=== PATIENT | female | born 1975 | race Hispanic/Latino ===

== ENCOUNTER 2024-09-23 11:00 | Inpatient (IN) | payer BC ==
[~2024-09-23] VITALS: Ht 149.9 cm; Wt 32.7 kg
[2024-09-23] VITALS (18 sets, daily range): BP systolic 107–146; BP diastolic 63–77; PULSE 50–90; RESP 15–18; TEMP 97.8–98.2; O2SAT 97
--- NOTE | 2024-09-23 11:08 | ERN ---
General Chief Complaint: Abdominal Pain Stated Complaint: ABDOMINAL PAIN Time Seen by MD: 11:02 Source: patient History of Present Illness Initial Comments PATIENT IS A 49-YEAR-OLD FEMALE COMING IN COMPLAINING OF LOWER ABDOMINAL PAIN. PATIENT STATES THAT THE LONG THE PAIN HAS BEEN GOING ON FOR THREE DAYS. PATIENT WAS EVALUATED ANOTHER HOSPITAL WAS TOLD SHE HAD APPENDICITIS SHE STATES HE LEFT AND WAS LATER EVALUATED BY DR. CRAIG WHO ORDERED A CT AND STATES THAT SHE DOES HAVE AN APPENDICITIS. PATIENT WAS SENT IN FOR FURTHER EVALUATION BY DR. CRAIG. Allergies: Coded Allergies: No Known Allergies (Unverified Allergy, Unknown, 09/23/24) Past Medical History Past Medical History: Cancer, Hypertension Medical History Other: FIBROMYALGIA Past Surgical History: Other ROS Dictation CONSTITUTIONAL: NO CHILLS, NO FEVER, NO WEAKNESS, NO DIAPHORESIS, NO MALAISE. HEAD/FACE: NO SIGNS OF TRAUMA. EENT: NO EYE PAIN, NO BLURRED VISION, NO TEARING, NO DOUBLE VISION, NO EAR PAIN, NO EAR DISCHARGE, NO NOSE PAIN, NO NASAL CONGESTION, NO THROAT PAIN, NO THROAT SWELLING, NO MOUTH PAIN. RESPIRATORY: NO COUGH, NO ORTHOPNEA, NO SOB, NO STRIDOR, NO WHEEZING. CARDIOVASCULAR: NO CHEST PAIN, NO EDEMA, NO PALPITATIONS, NO SYNCOPE. GASTROINTESTINAL/ABDOMINAL: ABDOMINAL PAIN, NO CONSTIPATION, NO DIARRHEA, NO NAUSEA, NO VOMITING. GENITOURINARY: NO ABNORMAL DISCHARGE, NO DYSURIA, NO FREQUENT URINATION, NO HEMATURIA. NO COMPLAINTS OF PAIN IN THE GENITALS. MUSCULOSKELETAL: NO BACK PAIN, NO GOUT, NO JOINT PAIN, NO JOINT SWELLING, NO MUSCLE PAIN, NO MUSCLE STIFFNESS, NO NECK PAIN. INTEGUMENTARY: NO CHANGE IN COLOR, NO CHANGE IN HAIR/NAILS, NO DRYNESS, NO LESION, NO LUMPS, NO RASH. NEUROLOGICAL/PSYCH: NO ANXIETY, NOT DEPRESSED, NO EMOTIONAL PROBLEM, NO HEADACHE, NO NUMBNESS, NO PRE-EXISTING DEFICIT, NO HISTORY OF SEIZURES, NO TREMORS, NO WEAKNESS. HEMATOLOGIC/LYMPHATIC: NOT ANEMIC, NO HISTORY OF BLOOD CLOTS, NO APPARENT BLEEDING, NO BRUISING, GLANDS NOT SWOLLEN. ALL SYSTEMS NEGATIVE, EXCEPT NOTED. Physical Exam Physical Exam Dictation VITAL SIGNS: REVIEWED. GENERAL APPEARANCE: ALERT, ORIENTED X3, NO ACUTE DISTRESS, OBESE. HEAD AND FACE: NON-TRAUMATIC. EYES: PERRL, PINK CONJUNCTIVAS, EYELID NO TRAUMA, ANTERIOR CHAMBER CLEAR. EARS: PINNAS INTACT AND NO SIGNS OF TRAUMA OR ERYTHEMA. EAR CANALS CLEAR AND NO DISCHARGE. TMS NO ERYTHEMA. NOSE: NO DISCHARGE, NO BLEEDING. OROPHARYNX: MOUTH NORMAL, TEETH NO CARIES, TONGUE PINK. PHARYNX CLEAR, NO ERYTHEMA. TONSILS NO EXUDATES, NO ABSCESSES NOTED. MUCOUS MEMBRANE MOIST. NECK: SUPPLE, NON-TENDER, NO THYROMEGALY, NO MASSES, NO JVD, NO BRUITS. BREAST: DEFERRED. CHEST: NO TENDERNESS, NO CREPITUS, NO PARADOXICAL MOVEMENT, NO RETRACTIONS. LUNGS: CLEAR, WELL-VENTILATED, SYMMETRIC, NO RALES, NO WHEEZING, NO RHONCHI, NO STRIDOR, GOOD BREATH SOUNDS BILATERALLY. HEART: REGULAR RATE, REGULAR RHYTHM, NO MURMUR, NO GALLOPS. VASCULAR: NO PERIPHERAL EDEMA. ABDOMEN: SOFT, POSITIVE BOWEL SOUNDS, NONDISTENDED, NO GUARDING, LOWER ABDOMINAL TENDER, NO REBOUND, NO MASSES NO HEPATOMEGALY, NO SPLENOMEGALY, NO JONES'S SIGN, NO HERNIAS. RECTAL: DEFERRED. GENITAL: DEFERRED. NEUROLOGICAL: NORMAL SPEECH, GROSS MOTOR FUNCTION INTACT, GROSS SENSORY FUNCTION INTACT. MUSCULOSKELETAL: NECK NONTENDER, FULL RANGE OF MOTION, BACK NONTENDER, FULL RANGE OF MOTION. EXTREMITIES: NONTENDER, FULL RANGE OF MOTION. SKIN: COLOR PINK, DRY, NO TURGOR, NO RASH, NO LACERATIONS, NO ABRASIONS, NO CONTUSIONS. LYMPHATICS: DEFERRED. Results Laboratory and Microbiology Labs Reviewed?: Yes MDM MDM: DIFFERENTIAL DIAGNOSIS: APPENDICITIS, ABDOMINAL PAIN, RATIONALE: TESTS CONSIDERED AND ORDERED SECONDARY TO SHARED DECISION MAKING INCLUDE: LABS, ECG AND RADIOLOGY PREVIOUS OUTSIDE RECORDS REVIEWED: OLD ER VISITS. RISK OF COMPLICATION AND/OR MORBIDITY OR MORTALITY OF PATIENT MANAGEMENT: NONE MEDICATIONS-PER MEDICATION RECONCILIATION NEED FOR HOSPITALIZATION: PATIENT DOES MEET CRITERIA FOR HOSPITALIZATION. NEED FOR EMERGENCY MAJOR/MINOR SURGERY: NO THERE ARE NO SOCIAL CONCERNS WITH THIS PATIENT. PRESCRIPTION DRUG MANAGEMENT PRESCRIPTIONS WILL INCLUDE SYMPTOMATIC CARE PATIENT'S PRIOR EXTERNAL MEDICAL RECORDS FROM OTHER ER VISITS WERE REVIEWED BY ME INDICATED. PRIOR TESTING AND RESULTS FROM PREVIOUS VISITS WERE REVIEWED. PRIOR TESTS WERE TAKEN INTO ACCOUNT WITH MEDICAL DECISION MAKING AND RESOURCE UTILIZATION, INDEPENDENT HISTORIAN/HISTORIANS WERE USED TO OBTAIN COMPLETE MEDICAL HISTORY. I INDEPENDENTLY INTERPRETED THE TEST THAT WERE PERFORMED, RESULTS WERE REVIEWED BY ME AND CONSIDERED FINDINGS ON RADIOLOGY IF ORDERED. MEDICAL MANAGEMENT AND EXAMINATION INTERPRETATION DISCUSSIONS WERE HAD BY ME WITH OTHER QUALIFIED HEALTHCARE PROFESSIONALS INDICATED FOR THE PATIENT'S CARE. PATIENT WILL BE ADMITTED UNDER THE CARE OF HOSPITALIST GROUP FOR ONGOING MANAGEMENT. SURGEON ON THE CASE DR. CRAIG ED Course Orders Procedure Category Date Status Time Cbc With Differential LAB 09/23/24 Logged 11:06 Comprehensive LAB 09/23/24 Logged Metabolic Panel 11:06 Amylase LAB 09/23/24 Logged 11:06 Troponin I High LAB 09/23/24 Logged Sensitivity 11:06 ,Urine Test LAB 09/23/24 Logged 11:06 Urinalysis Profile LAB 09/23/24 Logged 11:06 Creatine Kinase, Total LAB 09/23/24 Logged 11:06 Zosyn 3.375gm+Ns 50ml PHA 09/23/24 In Process (Zosyn 3.375gm+Ns 11:30 Initiate Hypokalemia CPOE 09/23/24 Transmitted Po Half 11:17 Potassium Chloride PHA 09/23/24 In Process 10meq/100ml ([place] 11:30 Potassium Chl 10% PHA 09/23/24 In Process Elixir 20meq (Kcl 10% 11:30 Notify Physician If CPOE 09/23/24 Transmitted There Is 11:17 Notify Md On The Next CPOE 09/23/24 Transmitted 11:17 Notify Md On The CPOE 09/23/24 Transmitted Next(Cont.) 11:17 Initiate Po CHANTAL 09/23/24 In Process Hypokalemia Protoc 11:17 Potassium Chloride PHA 09/23/24 In Process 20meq/100ml ([place] 11:30 Potassium Chl 10% PHA 09/23/24 In Process Elixir 20meq (Kcl 10% 11:30 Potassium Chloride PHA 09/23/24 In Process 20meq Er (K-Dur/Klor- 11:30 Notify Physician If CPOE 09/23/24 Transmitted There Is 11:17 Notify Md On The Next CPOE 09/23/24 Transmitted 11:17 Notify Md On The CPOE 09/23/24 Transmitted Next(Cont.) 11:17 Magnesium 2gm Premix PHA 09/23/24 In Process 50ml (Magnesium 2gm 11:30 B-Type Natriuretic LAB 09/24/24 Verified Peptide 04:00 Cbc With Differential LAB 09/24/24 Verified 04:00 Comprehensive LAB 09/24/24 Verified Metabolic Panel 04:00 Creatine Kinase, Total LAB 09/24/24 Verified 04:00 Hemoglobin A1c LAB 09/24/24 Verified 04:00 Hepatic Function Panel LAB 09/24/24 Verified 04:00 Influenza Type A & B, LAB 09/23/24 Logged Rapid 11:17 Lactic Acid LAB 09/24/24 Verified 04:00 Magnesium LAB 09/24/24 Verified 02:00 Prothrombin Time With LAB 09/24/24 Verified INR 04:00 Procalcitonin LAB 09/24/24 Verified 04:00 Potassium Chloride PHA 09/23/24 In Process 10meq Sr (K-Dur 10meq 11:30 Edm Admit Bridge Order ADM 09/23/24 Verified 11:21 Vital Signs(Adult CPOE 09/23/24 Verified Hospitalist) 11:21 Nurse To Enter Home CPOE 09/23/24 Verified Medication 11:21 Admit Orders ADM 09/23/24 Verified 11:21 Current Medications Medications (Trade) Dose Ordered Sig/Crescencio Route PRN Reason Start Time Stop Time Status Last Admin Dose Admin Magnesium Sulfate 50 ml @ 0 mls/hr PROTOCOL PRN IV other 09/23/24 11:30 10/23/24 11:29 Piperacillin Sod/ Tazobactam Sod (Zosyn 3.375gm+NS 50ml) 3.375 gm ONCE ONCE IV 09/23/24 11:30 09/23/24 11:31 Potassium Chloride 100 ml @ 100 mls/hr AD PRN IV POTASSIUM PROTOCOL 09/23/24 11:30 10/23/24 11:29 Potassium Chloride 100 ml @ 100 mls/hr AD PRN IV POTASSIUM PROTOCOL 09/23/24 11:30 10/23/24 11:29 Potassium Chloride (K-Dur 10meq Sr Tab) 10 meq AD PRN PO POTASSIUM PROTOCOL 09/23/24 11:30 10/23/24 11:29 Potassium Chloride (K-Dur/Klor-Con 20meq) 20 meq AD PRN PO POTASSIUM PROTOCOL 09/23/24 11:30 10/23/24 11:29 Potassium Chloride (KCl 10% Elixir 20meq/15ml) 10 meq AD PRN PO POTASSIUM PROTOCOL 09/23/24 11:30 10/23/24 11:29 Potassium Chloride (KCl 10% Elixir 20meq/15ml) 20 meq AD PRN PO POTASSIUM PROTOCOL 09/23/24 11:30 10/23/24 11:29 Vital Signs Date Time Temp Pulse Resp B/P (MAP) Pulse Ox O2 Delivery O2 Flow Rate FiO2 09/23/24 11:02 98.6 82 20 143/95 99 Room Air DX & DISP Disposition: Inpatient Decision to Admit Time: 11:27 Departure Impression: Primary Impression: Acute appendicitis Condition: Stable Referrals: SELF,REFERRAL (PCP) JOHN ROLON MD September 23, 2024 11:08
[2024-09-23] MEDS ORDERED: FAMOTIDINE 20MG VIAL IV PRN (11:30)
[2024-09-23] MEDS ORDERED: PoTASSium chloRIDE 10MEQ SR 10 MEQ/TAB TAB.SR.24H PO PRN (11:30)
[2024-09-23] MEDS ORDERED: MAG/ALUM/SIMETH 30 ML UDCUP PO PRN (11:30)
[2024-09-23] MEDS ORDERED: LACTULOSE 20 GM/30 ML UDCUP PO PRN (11:30)
[2024-09-23] MEDS ORDERED: MAGNESIUM 2GM PREMIX 50ML 50 ML IV PRN (11:30)
[2024-09-23] MEDS ORDERED: PoTASSium chloRIDE 10MEQ/100ML 100 ML IV PRN (11:30)
[2024-09-23] MEDS ORDERED: ZOLPidem TARTrate 5 MG TAB PO PRN (11:30)
[2024-09-23] MEDS ORDERED: guaiFENesin-DM 200/20MG 10ML PO PRN (11:30)
[2024-09-23] MEDS ORDERED: ondanSETRON 4MG INJ IV PRN (11:30)
[2024-09-23] MEDS ORDERED: PoTASSium chloRIDE 20MEQ ER 20 MEQ ERTAB PO PRN (11:30)
[2024-09-23] MEDS ORDERED: hydrALAZine 20MG/ML VIAL IV PRN (11:30)
[2024-09-23] MEDS ORDERED: DiphenhydrAMINE HCL 50 MG/ML VIAL IV PRN (11:30)
[2024-09-23] MEDS ORDERED: NITROGLYCERIN 0.4 MG SL TAB SL PRN (11:30)
[2024-09-23] MEDS ORDERED: PoTASSium chloRIDE 20MEQ/100ML 100 ML IV PRN (11:30)
[2024-09-23] MEDS ORDERED: acetaMINOPHEN 325 MG TAB PO PRN ×3 (11:30)
[2024-09-23] MEDS ORDERED: PoTASSium chl 10% ELIXIR 20MEQ 20 MEQ/15 ML UDCUP PO PRN ×2 (11:30)
[2024-09-23 11:35] LABS: BASOPHILS # (AUTO) 0.04 K/uL (0.00-0.20); BASOPHILS % (AUTO) 0.7 % (0.0-5.0); EOSINOPHILS # (AUTO) 0.08 K/uL (0.00-0.70); EOSINOPHILS % (AUTO) 1.3 % (0.0-8.0); HEMATOCRIT 38.1 % (36-48); IMMATURE GRANULOCYTE ABSOLUTE 0.02 K/uL (0-1); LYMPHOCYTES % (AUTO) 32.7 % (21.0-51.0); MEAN CORPUSCULAR HEMOGLOBIN 28.8 pg (27.0-33.0); MEAN CORPUSCULAR HGB CONC 32.5 g/dL (32.0-36.0); MEAN CORPUSCULAR VOLUME 88.6 fL (79-99); MONOCYTES # (AUTO) 0.4 K/uL (0.1-1.0); MONOCYTES % (AUTO) 6.8 % (3.0-13.0); NEUTROPHILS # (AUTO) 3.5 K/uL (1.8-7.7); NEUTROPHILS % (AUTO) 58.2 % (40.0-77.0); PLATELET COUNT (AUTO) 267 K/uL (130-400); RED CELL DISTRIBUTION WIDTH 12.6 % (11.0-15.5)
[2024-09-23 11:38] LABS: APPEARANCE,URINE CLEAR (CLEAR); BILIRUBIN,URINE NEGATIVE (NEGATIVE); COLOR,URINE LIGHT-YELLOW (YELLOW); GLUCOSE, URINE (UA) NEGATIVE (NEGATIVE); KETONES,URINE NEGATIVE (NEGATIVE); LEUKOCYTE ESTERASE ,URINE NEGATIVE Leu/uL (NEGATIVE); NITRATE,URINE NEGATIVE (NEGATIVE); OCCULT BLOOD,URINE NEGATIVE (NEGATIVE); PH,URINE 5.5 (5.0-8.0); PROTEIN,URINE NEGATIVE (NEGATIVE); UROBILINOGEN,URINE 0.2 mg/dL (0.2-1.0)
[2024-09-23 11:44] LABS: CREATININE 0.6 mg/dL (0.5-1.0); POTASSIUM 3.8 mmol/L (3.5-5.1)
[2024-09-23 11:44] LABS: MUCUS,URINE RARE LPF (None Seen); RBC,URINE 0-1 /HPF (0-1); SQUAMOUS EPITHELIAL CELL,UR MOD /HPF (0-2)
[2024-09-23] MEDS: 0.9%NACL 1000ML 1,000 ML IV SCH (11:45)
[2024-09-23] MEDS: ZOSYN 3.375GM +NS 50ML IV ONE (11:45)
[2024-09-23 11:48] LABS: ALBUMIN 3.7 g/dL (3.5-5.0); BILIRUBIN,TOTAL 0.3 mg/dL (0.2-1.0); TOTAL PROTEIN, SERUM 7.2 g/dL (6.0-8.3)
--- NOTE | 2024-09-23 11:54 | NUR ---
DCP: HOME Pt currently lives with her 2 children. Mary Jo Amezcua dgt [phone] was at bedside. Pt does not report any insecurities with food, assisted, and/or utilities. Pt denies any provider and home health services. Pt currently works at [employer] and is able to complete ADLs independently. PCP is Dr Watt and uses [facility] [address] for any RX needs. At DC pt will go home and family will assist with transportation. Addendum: 09/23/24 at 1200 by LOUISA BLANKENSHIP SS Amended: Links added.
--- NOTE | 2024-09-23 11:57 | CONS ---
CONSULT NOTE: Consulting physician: ER Consulting service: General surgery Reason for consultation: Acute appendicitis History of present illness: This is a 41-year-old female consulted to surgery known to our practice that has had abdominal pain for the last three days. Patient initially reporting trauma to the location while getting out of her vehicle but continued worsening discomfort since initial incident. Patient ended up having imaging performed which was consistent with a acute appendicitis. On physical exam patient with right lower quadrant discomfort. Imaging reviewed and concerns for acute a ppendicitis noted. Patient currently NPO. Labs and vitals unremarkable. Medical history: Cancer and hypertension fibromyalgia Surgical history: Review of systems: General: No Fever, No Chills, No Night Sweats, No Fatigue, No Malaise, No Appetite, No Other HEENT: No Head Aches, No Visual Changes, No Eye Pain, No Ear Pain, No Dysphasia, No Sinus Congestion, No Post Nasal Drip, No Sore Throat, No Other Pulmonary: No Dyspnea, No Cough, No Pleuritic Chest Pain, No Other Cardiovascular: No: Chest Pain, Palpitations, Orthopnea, Paroxysmal No Dyspnea, Edema, Lt Headedness, Other Gastrointestinal: No: Nausea, Vomiting, Diarrhea, Constipation, Melena, Hematochezia, Other Genitourinary: No Dysuria, No Frequency, No Incontinence, No Hematuria, No Retention, No Other Musculoskeletal: No: other, neck pain, shoulder pain, arm pain, back pain, hand pain, leg pain, foot pain Skin: No Urticaria, No Rash, No Other Neurological: No: Weakness, Numbness, Incoordination, Change in speech, Confusion, Seizures, Other Physical exam: General: Awake alert and oriented Heart: Regular rate and rhythm} Lungs: Clear to auscultation no distress Abdomen: [Soft, nontender, nondistended Assessment: This is a 49-year-old female with concerns of acute appendicitis Plan: This point in time patient will be scheduled for laparoscopic appendectomy to be performed by Dr. Robert Monroe Patient to remain NPO Surgical team to follow patient closely Consent for surgery to be obtained Dr. Monroe has been updated in patient's status and agrees with management at this time BENNY FONTANEZ Jr. September 23, 2024 11:57
--- NOTE | 2024-09-23 12:30 | HMCIMG ---
Exam Type: CHEST 1VW Clinical Information: congestion Comparison: None Findings: The lungs are clear of infiltrates. The heart is normal in size. The bony and soft tissue structures of the chest are unremarkable. Impression: Clear lungs.
[2024-09-23 12:42] LABS: INFLUENZA TYPE A Negative For Type A (NEGATIVE); INFLUENZA TYPE B Negative For Type B (NEGATIVE)
--- NOTE | 2024-09-23 12:42 | HMCIMG ---
Exam Type: CT ABDOMEN AND PELVIS WITHOUT CONTRAST Clinical Information: acute appendecitis Findings: The appendix is distended and there is periappendiceal stranding consistent with acute appendicitis. No evidence of perforation seen at this time. The lung bases are clear. The liver, gallbladder, spleen, pancreas, adrenal glands and kidneys are normal in appearance. No pathologic lymphadenopathy is evident. The intestinal gas pattern shows no evidence of dilatation to suggest obstruction or adynamic ileus. There is no evidence of constipation and no bowel wall lesions are noted to suggest neoplasm. The colon is unremarkable. Specifically, no large or small bowel dilatation or air/ fluid levels are noted to suggest obstruction or adynamic ileus. There is no evidence of pneumoperitoneum. The pelvic viscera are normal in CT appearance. The perirectal fat planes are clear. The visualized osseous elements are normal for the patient's age. IMPRESSION: Acute appendicitis without evidence of perforation. This study was performed using dose reduction techniques to include automated exposure control and/or adjustment of the mA and/or kV according to patient size.
[2024-09-23] MEDS ORDERED: LOSA25TA41 PO (14:39)
[2024-09-23] MEDS ORDERED: ESTR1TAB17 PO (14:40)
[2024-09-23] MEDS ORDERED: BUPIvacaine/PF 0.5% 30ML VIAL ONE (14:59)
[2024-09-23] MEDS: metoCLOPRAmide 10 MG/2 ML VIAL IVP ONE (15:14)
[2024-09-23] MEDS ORDERED: proPOFol 10 MG/ML 20ML VIAL IV ONE (15:29)
[2024-09-23] MEDS ORDERED: rocuRONium bROMide 10MG/1ML 5ML VL ONE (15:30)
[2024-09-23] MEDS ORDERED: ondanSETRON 4MG INJ ONE (15:30)
[2024-09-23] MEDS ORDERED: FENTanyl CITRate PF 50 MCG/1 ML 2ML VIAL ONE ×2 (15:30→17:11)
[2024-09-23] MEDS ORDERED: MIDAZOLAM HCL 1 MG/ML 2ML VIAL ONE (15:31)
[2024-09-23] MEDS ORDERED: hydroMORPHone 1 MG INJ ONE (15:54)
--- NOTE | 2024-09-23 17:07 | OP ---
Operative Note: DATE OF PROCEDURE: 09/23/24 SURGEON: ELOY GERARDO MD RETAIL ASSET PROTECTION SPECIALIST: [] ANESTHESIA: [] ANESTHESIOLOGIST/BLISTER RUST ERADICATOR: [] PREOPERATIVE DIAGNOSIS: [] Acute appendicitis POSTOPERATIVE DIAGNOSIS: [] The same SYNOPSIS: [] PROCEDURE: [] Laparoscopic appendectomy ESTIMATED BLOOD LOSS: [] None INDICATIONS: [] DESCRIPTION OF PROCEDURE: []With the patient prepped and draped in usual fashion supraumbilical incision was done. Using direct technique I was able to place a balloon trocar and abdomen insufflated. Two 5 mm trochars were inserted under direct vision in the lower abdomen. Immediately we identified an inflamed appendix and a window was created in the base and the appendix. Using a laparoscopic 45 mm JASMIN white stapler I transected the base of appendix. I used a reload to transect the mesoappendix. The appendix was placed in a bag. After adequate hemostasis and irrigation in the area I remove all the trochars under direct vision and the appendix through the supraumbilical incision. The fascia was closed with the 0 Vicryl [id number]. All incisions were closed with monocryl 4-0 and dermabon. Anesthesia did a tap block in the abdomen before the procedure started. Patient tolerated procedure without complication ELOY GERARDO MD September 23, 2024 17:06
[2024-09-23] MEDS ORDERED: NEOSTIGMINE METHYLSULFATE 1MG/ML IV ONE (17:10)
[2024-09-23] MEDS ORDERED: GLYCOPYRROLATE 0.2 MG/ML 5 ML VIAL ONE (17:10)
[2024-09-23] MEDS: acetaMINOPHEN 100 ML ONE (17:37)
[2024-09-23] MEDS: hydroMORPHone 1 MG INJ ONE (17:38)
--- NOTE | 2024-09-23 18:30 | NUR ---
PT received from recovery room status post Laparoscopic appendectomy. She is alert and answering questions appropriately. Dheeraj pain. There a re 4 abdominal incision closed with dermabond. SCDs are placed to lower extremities. PIV x 2 to the right arm. Currently undergoing vitals checks per facility policy.
[2024-09-23] MEDS: ZOSYN 3.375GM+NS 50ML 50 ML IV SCH (20:02)
[2024-09-23] MEDS: FAMOTIDINE 20MG VIAL IV SCH (20:02)
[2024-09-23] MEDS: HEParin 5,000 UNIT VIAL SQ SCH (21:00)
--- NOTE | 2024-09-23 21:00 | NUR ---
NOTE PT RECENT POSTOP HEPARIN NOT GIVEN AT THIS TIME.
[2024-09-24] VITALS: BP 132/63; PULSE 76
[2024-09-24] MEDS: morPHINE 2 MG SYG IVP PRN (00:52)
[2024-09-24 04:00] VITALS: BP 115/73; PULSE 70; RESP 16; TEMP 99
[2024-09-24 05:35] LABS: BASOPHILS # (AUTO) 0.03 K/uL (0.00-0.20); BASOPHILS % (AUTO) 0.4 % (0.0-5.0); HEMATOCRIT 33.2 % (36-48); IMMATURE GRANULOCYTE ABSOLUTE 0.03 K/uL (0-1); LYMPHOCYTES % (AUTO) 14.5 % (21.0-51.0); MEAN CORPUSCULAR HEMOGLOBIN 29.1 pg (27.0-33.0); MEAN CORPUSCULAR HGB CONC 32.8 g/dL (32.0-36.0); MEAN CORPUSCULAR VOLUME 88.5 fL (79-99); MONOCYTES # (AUTO) 0.4 K/uL (0.1-1.0); MONOCYTES % (AUTO) 6.3 % (3.0-13.0); NEUTROPHILS # (AUTO) 5.5 K/uL (1.8-7.7); NEUTROPHILS % (AUTO) 78.4 % (40.0-77.0); PLATELET COUNT (AUTO) 236 K/uL (130-400); RED BLOOD CELL COUNT(AUTO) 3.75 MIL/uL (4.00-5.50); RED CELL DISTRIBUTION WIDTH 12.6 % (11.0-15.5)
[2024-09-24 05:52] LABS: BILIRUBIN,DIRECT 0.1 mg/dL (0.0-0.3); BILIRUBIN,TOTAL 0.3 mg/dL (0.2-1.0); CREATININE 0.6 mg/dL (0.5-1.0); MAGNESIUM 2.2 mg/dL (1.80-2.40); POTASSIUM 3.9 mmol/L (3.5-5.1); TOTAL PROTEIN, SERUM 6.1 g/dL (6.0-8.3)
[2024-09-24 05:53] LABS: INR 0.97 (0.85-1.15); PROTHROMBIN TIME 10.3 SEC (9.6-11.6)
[2024-09-24 06:06] LABS: HEMOGLOBIN A1C 5.5 % (4.0-6.0)
[2024-09-24 07:49] VITALS: BP 124/67; PULSE 68; RESP 18; TEMP 98.3
[2024-09-24] MEDS: ketOROlac 15MG/ML VIAL (15MG/ML) IV PRN (10:14)
[2024-09-24 10:22] VITALS: O2SAT 98
--- NOTE | 2024-09-24 10:52 | PN ---
This is a 49-year-old female postop day one for appendectomy by Dr. Monroe Interval history: This 49-year-old female seen in her room resting Patient's pain controlled Patient tolerating clear liquids Patient has had flatus Physical exam General: Awake alert and oriented Heart: Regular rate and rhythm} Lungs: Clear to auscultation no distress Abdomen: [Soft, nontender, nondistended expected discomfort from surgical sites Assessment : This is a 41-year-old female postop day one for appendectomy by Dr. Monroe Plan: From surgical standpoint patient cleared for discharge once cleared by primary team No heavy lifting for six weeks Patient to be sent with treadmill and Colace for pain management to avoid constipation Patient to follow up in 1-[address] Larios office Vitals/Labs Vital Signs Date Time Temp Pulse Resp B/P (MAP) Pulse Ox O2 Delivery O2 Flow Rate FiO2 09/24/24 10:22 98 Room Air* 0 21 09/24/24 07:49 98.2 68 18 124/67 Laboratory Tests 09/23/24 11:21 09/24/24 05:17 Medications Current Medications Piperacillin Sod/ Tazobactam Sod 3.375 gm ONCE ONCE IV Last administered on 09/23/24at 11:45; Start 09/23/24 at 11:30; Stop 09/23/24 at 11:31; Status DC Potassium Chloride 100 ml @ 100 mls/hr AD PRN IV; Start 09/23/24 at 11:30; Stop 10/23/24 at 11:29 Potassium Chloride 10 meq AD PRN PO; Start 09/23/24 at 11:30; Stop 10/23/24 at 11:29 Potassium Chloride 10 meq AD PRN PO; Start 09/23/24 at 11:30; Stop 10/23/24 at 11:29 Potassium Chloride 100 ml @ 100 mls/hr AD PRN IV; Start 09/23/24 at 11:30; Stop 10/23/24 at 11:29 Potassium Chloride 20 meq AD PRN PO; Start 09/23/24 at 11:30; Stop 10/23/24 at 11:29 Potassium Chloride 20 meq AD PRN PO; Start 09/23/24 at 11:30; Stop 10/23/24 at 11:29 Magnesium Sulfate 50 ml @ 0 mls/hr PROTOCOL PRN IV; Start 09/23/24 at 11:30; Stop 10/23/24 at 11:29 Diphenhydramine HCl 25 mg Q6H PRN IV; Start 09/23/24 at 11:30; Stop 10/23/24 at 11:29 Acetaminophen 650 mg Q6H PRN PO; Start 09/23/24 at 11:30; Stop 10/23/24 at 11:29 Acetaminophen 650 mg Q4H PRN PO; Start 09/23/24 at 11:30; Stop 09/23/24 at 11:34; Status DC Ondansetron HCl 4 mg Q6H PRN IV; Start 09/23/24 at 11:30; Stop 10/23/24 at 11:29 Zolpidem Tartrate 5 mg HS PRN PO; Start 09/23/24 at 11:30; Stop 10/23/24 at 11:29 Al Hydroxide/Mg Hydroxide 30 ml Q6H PRN PO; Start 09/23/24 at 11:30; Stop 10/23/24 at 11:29 Lactulose 20 gm BID PRN PO; Start 09/23/24 at 11:30; Stop 10/23/24 at 11:29 Nitroglycerin 0.4 mg PROTOCOL PRN SL; Start 09/23/24 at 11:30; Stop 10/23/24 at 11:29 Guaifenesin/ Dextromethorphan 10 ml Q4H PRN PO; Start 09/23/24 at 11:30; Stop 10/23/24 at 11:29 Famotidine 20 mg BID PRN IV; Start 09/23/24 at 11:30; Stop 09/23/24 at 11:34; Status DC Heparin Sodium (Porcine) 5,000 unit BID SQ; Start 09/23/24 at 21:00; Stop 10/23/24 at 20:59 Acetaminophen 650 mg Q6H PRN PO; Start 09/23/24 at 11:30; Stop 10/23/24 at 11:29 Ketorolac Tromethamine 15 mg Q8H PRN IV Last administered on 09/24/24at 10:14; Start 09/23/24 at 11:30; Stop 09/28/24 at 11:29 Morphine Sulfate 1 mg Q4H PRN IVP Last administered on 09/24/24at 06:34; Start 09/23/24 at 11:30; Stop 09/30/24 at 11:29 Piperacillin Sod/ Tazobactam Sod 50 ml @ 12.5 mls/hr Q8H IV Last administered on 09/24/24at 04:54; Start 09/23/24 at 20:00; Stop 10/03/24 at 19:59 Sodium Chloride 1,000 ml @ 100 mls/hr Q10H IV Last administered on 09/24/24at 07:10; Start 09/23/24 at 11:30; Stop 10/23/24 at 11:29 Hydralazine HCl 10 mg Q6H PRN IV; Start 09/23/24 at 11:30; Stop 10/23/24 at 11:29 Famotidine 20 mg BID IV Last administered on 09/23/24at 20:02; Start 09/23/24 at 21:00; Stop 10/23/24 at 20:59 Metoclopramide HCl 10 mg ONCE ONCE IVP Last administered on 09/23/24at 15:14; Start 09/23/24 at 15:00; Stop 09/23/24 at 15:01; Status DC Bupivacaine HCl 5 mg STK-MED ONCE .ROUTE; Start 09/23/24 at 14:59; Stop 09/23/24 at 15:01; Status DC Propofol 200 mg STK-MED ONCE IV; Start 09/23/24 at 15:29; Stop 09/23/24 at 15:30; Status DC Ondansetron HCl 4 mg STK-MED ONCE .ROUTE; Start 09/23/24 at 15:30; Stop 09/23/24 at 15:30; Status DC Rocuronium [place] 50 mg STK-MED ONCE .ROUTE; Start 09/23/24 at 15:30; Stop 09/23/24 at 15:30; Status DC Fentanyl Citrate 100 mcg STK-MED ONCE .ROUTE; Start 09/23/24 at 15:30; Stop 09/23/24 at 15:30; Status DC Midazolam HCl 2 mg STK-MED ONCE .ROUTE; Start 09/23/24 at 15:31; Stop 09/23/24 at 15:31; Status DC Hydromorphone HCl 1 mg STK-MED ONCE .ROUTE; Start 09/23/24 at 15:54; Stop 09/23/24 at 15:55; Status DC Glycopyrrolate 1 mg STK-MED ONCE .ROUTE; Start 09/23/24 at 17:10; Stop 09/23/24 at 17:10; Status DC Neostigmine Methylsulfate 10 mg STK-MED ONCE IV; Start 09/23/24 at 17:10; Stop 09/23/24 at 17:10; Status DC Fentanyl Citrate 100 mcg STK-MED ONCE .ROUTE; Start 09/23/24 at 17:11; Stop 09/23/24 at 17:11; Status DC Hydromorphone HCl 1 mg STK-MED ONCE .ROUTE Last administered on 09/23/24at 17:38; Start 09/23/24 at 17:34; Stop 09/23/24 at 17:35; Status DC Acetaminophen 100 ml @ As Directed STK-MED ONCE .ROUTE Last administered on 09/23/24at 17:37; Start 09/23/24 at 17:35; Stop 09/23/24 at 17:35; Status DC Losartan Potassium 25 mg DAILY PO; Start 09/25/24 at 09:00; Stop 10/25/24 at 08:59 BENNY FONTANEZ Jr. September 24, 2024 10:52
--- NOTE | 2024-09-24 11:29 | DS ---
Discharge Summary Hospital Course Summary: DATE OF ADMISSION:[09/23/2024] DATE OF DISCHARGE:[09/24/2024] DISPOSITION:[Home] CONDITION:[Medically stable] CONSULTANTS:[Surgeon] FOLLOW UP APPOINTMENTS:[PCP 2 to 3 days. Surgeon within one week] PROCEDURES:[Lap appendectomy 09/23/24] IMAGING: report attached to summary MICROBIOLOGY: report attached to summary ACTIVITY: Independent [] HOME MEDICATIONS: see [facility] NEW MEDICATIONS:[ Patient received a written prescription from surgeon for tramadol and Colace] EMERGENCY INSTRUCTIONS: The patient was instructed to present to the nearest Emergency departmentr or call 911 once their symptoms will return or worsen Boot Liner Maker(s): Patient is 49 years old female who came to emergency department from Dr. Monroe office with a diagnosis of acute appendicitis. Patient on day of admission underwent lap appendectomy with Dr. Monroe 09/23/2024. Today patient was cleared by surgeon to go home. Written prescription was given to patient for tramadol and Colace. Patient is independent is able to walk is passing gases. Patient denies any nausea or vomiting. Patient was cleared to be discharged home follow up outpatient with surgeon within one week. Patient was also recommended to follow up with her PCP in 2 to 3 days. Procedure(s): Review of systems: General: No Fever, No Chills, No Night Sweats, No Fatigue, No Malaise, No Appetite, No Other HEENT: No Head Aches, No Visual Changes, No Eye Pain, No Ear Pain, No Dysphasia, No Sinus Congestion, No Post Nasal Drip, No Sore Throat, No Other Pulmonary: No Dyspnea, No Cough, No Pleuritic Chest Pain, No Other Cardiovascular: No: Chest Pain, Palpitations, Orthopnea, Paroxysmal No Dyspnea, Edema, Lt Headedness, Other Gastrointestinal: No: Nausea, Vomiting, Diarrhea, Constipation, Melena, Hematochezia, Other Genitourinary: No Dysuria, No Frequency, No Incontinence, No Hematuria, No Retention, No Other Musculoskeletal: No: other, neck pain, shoulder pain, arm pain, back pain, hand pain, leg pain, foot pain Skin: No Urticaria, No Rash, No Other Neurological: No: Weakness, Numbness, Incoordination, Change in speech, Confusion, Seizures, Other Physical exam: General: Awake alert and oriented Heart: Regular rate and rhythm} Lungs: Clear to auscultation no distress Abdomen: [Soft, nontender, nondistended Assessment/Plan: ASSESSMENT: [ Acute appendicitis s/p lap appendectomy 09/23/2024 Uncontrolled hypertension POA Fibromyalgia POA ] Home Medications: Reported Medications Estradiol (Estradiol) 1 Mg Tablet, 1 TAB PO DAILY for 30 Days, #30 TAB 0 Refills 09/23/24 Losartan Potassium (Losartan Potassium) 25 Mg Tablet, 1 TAB PO DAILY for 30 Days, #30 TAB 0 Refills 09/23/24 Time spent arranging discharge: 31-60 minutes ATTESTATION BY PHYSICIAN I have seen and examined the patient. I reviewed the documentation, medical decision making, and treatment plan as noted by the mid-level provider above. I agree with the findings and plan of care. DILEEP VILLALOBOS MD, KATARZYNA B LUMBER CHAIN OFFBEARER September 24, 2024 11:29
--- NOTE | 2024-09-24 11:35 | HP ---
[facility] HISTORY [facility] PHYSICAL Date of Service: September 23, 2024 Time of Service: 12:30 Admitting: Dr Villalobos, Allergies: No Allergy Information Available, No Known Drug Allergies HISTORY OF PRESENT ILLNESS: [ Patient is 49 years old female with a past medical history of hypertension, fibromyalgia, who came to emergency department with a complaint of lower abdominal pain. Patient stated that this pain has been going on for the past three days. Patient was evaluated in another hospital where she was told that she had acute appendicitis. Later on she was evaluated by Dr. Monroe, for the CT scan and showed acute appendicitis. Patient was advised to go to [facility] for lap radha. Patient is pending lap radha today 09/23/2024.] Most recent vital signs temperature 98.2� pulse 74 respirations 16 blood pressure 153/85 patient is on room air satting 98%. Patient will be admitted under hospitalist care for further evaluation/recommendation. Surgery consulted. Patient agrees with the above-stated plan. REVIEW OF SYSTEMS CONSTITUTIONAL: Denies fevers, chills, or night sweats. No unintentional weight loss reported. NEUROLOGICAL: Denies headache, amaurosis fugax, motor weakness, sensory deficit, vertigo/spinning sensation, gait abnormalities, or tremors. ENT: No hearing loss, otalgia, otorrhea, rhinitis, rhinorrhea, hoarseness, or sore throat. CARDIOVASCULAR: Denies any exertional angina, dyspnea on exertion, orthopnea, paroxysmal nocturnal dyspnea, palpitations, life-threatening arrhythmias, claudication. PULMONARY: Denies any shortness of breath, cough, phlegm/sputum, hemoptysis, pleuritic chest pain. SLEEP: Denies morning headaches, daytime somnolence or napping. Denies difficulty falling asleep, staying asleep, waking from sleep. Denies knowledge of snoring. GASTROINTESTINAL: Denies any type of dysphagia to either liquids or solids. Denies nausea, vomiting, pyrosis, early satiety, diarrhea, constipation, or changes in stool consistency or caliber. Denies coffee-ground emesis, hematemesis, hematochezia, or melanotic stools. Abdominal pain GENITOURINARY: Denies frequency, urgency, nocturia, hematuria or incontinence (Storage/Irritative symptoms.) Low urinary stream, straining to void, urinary intermittency or hesitancy, splitting of the voiding stream, terminal dribbling. ENDOCRINOLOGIC: Denies polyuria, polydipsia, polyphagia or heat/cold intolerances. HEMATOLOGIC: Denies thrombophilia/previous clots, or coagulopathy/bleeding disorders. ONCOLOGIC: Denies personal history of malignancy. DERMATOLOGIC: Denies rashes or pruritus. PSYCHIATRIC: Denies any suicidal or homicidal ideation. Denies hallucinations. PAST MEDICAL HISTORY: [Fibromyalgia, hypertension ] PAST SURGICAL HISTORY: [None ] PAST SOCIAL HISTORY: [ Patient denies smoking. Patient denies any drug illicit. Patient denies alcohol use ] FAMILY HISTORY: [ Patient lives at home with the family. Patient is independent ] Coded Allergies: No Known Allergies (Unverified Allergy, Unknown, 09/23/24) PHYSICAL EXAM GENERAL APPEARANCE: The patient is awake, alert, and oriented, in no acute cardiopulmonary distress. NEUROLOGICAL: Cranial nerves II-XII grossly intact. Motor is 5/5 in bilateral upper and lower extremities proximal to distal. No sensory deficits. HEENT: Face is symmetric. Pupils are equal and reactive. Extraocular movements are intact. NECK: Supple. No JVD. No thyromegaly. No submental, submandibular, pre- /postauricular, occipital or supraclavicular lymphadenopathy. CHEST: Normal chest expansion. No Telemetry. LUNGS: Absence of any rales, rhonchi or any wheezing. CARDIOVASCULAR: Regular. S1 and S2 normal. No appreciable rubs, murmurs or gallops. ABDOMEN: Soft, nontender, and nondistended. There is no rebound, voluntary guarding, or rigidity. : Deferred. No Valenzuela. EXTREMITIES: Non-edematous and not cyanotic. No clubbing. Good capillary refill. SKIN: No skin breakdown. Vital Sign (Last 24 Hours) 09/24/24 09/24/24 07:49 10:22 Temp 98.2 Pulse 68 Resp 18 B/P (MAP) 124/67 Pulse Ox 98 O2 Delivery Room Air* O2 Flow Rate 0 FiO2 21 LABS: Laboratory: Test 09/24/24 09:03 09/24/24 05:17 09/23/24 11:53 09/23/24 11:26 Range/Units Lactic Acid Level 2.4 0.8-2.5 mmol/L White Blood Count 7.0 4.8-10.8 K/uL Red Blood Count 3.75 L 4.00-5.50 MIL/uL Hemoglobin 10.9 L 12.0-16.0 g/dL Hematocrit 33.2 L 36-48 % Mean Corpuscular Volume 88.5 79-99 fL Mean Corpuscular Hemoglobin 29.1 27.0-33.0 pg Mean Corpuscular Hemoglobin Concent 32.8 32.0-36.0 g/dL Red Cell Distribution Width 12.6 11.0-15.5 % Platelet Count 236 130-400 K/uL Mean Platelet Volume 11.0 H 7.5-10.5 fL Immature Granulocyte % (Auto) 0.4 0-1 % Neutrophils (%) (Auto) 78.4 H 40.0-77.0 % Lymphocytes (%) (Auto) 14.5 L 21.0-51.0 % Monocytes (%) (Auto) 6.3 3.0-13.0 % Eosinophils (%) (Auto) 0.0 0.0-8.0 % Basophils (%) (Auto) 0.4 0.0-5.0 % Neutrophils # (Auto) 5.5 1.8-7.7 K/uL Lymphocytes # (Auto) 1.0 1.0-4.8 K/uL Monocytes # (Auto) 0.4 0.1-1.0 K/uL Eosinophils # (Auto) 0.00 0.00-0.70 K/uL Basophils # (Auto) 0.03 0.00-0.20 K/uL Absolute Immature Granulocyte (auto 0.03 0-1 K/uL Nucleated Red Blood Cells 0.0 0.0-0.19 % Prothrombin Time 10.3 9.6-11.6 SEC Prothromb Time International Ratio 0.97 0.85-1.15 Sodium Level 139 136-145 mmol/L Potassium Level 3.9 3.5-5.1 mmol/L Chloride Level 105 101-111 mmol/L Carbon Dioxide Level 25 21-32 mmol/L Blood Urea Nitrogen 4 L 7-18 mg/dL Creatinine 0.6 0.5-1.0 mg/dL Glomerular Filtration Rate Calc 111 >90 mL/min Random Glucose 110 H 70-105 mg/dL Hemoglobin A1c 5.5 4.0-6.0 % Estimated Average Glucose (eAG) 111 70-126 mg/dL Total Calcium 7.9 L 8.5-10.1 mg/dL Magnesium Level 2.20 1.80-2.40 mg/dL Total Bilirubin 0.3 0.2-1.0 mg/dL Direct Bilirubin 0.1 0.0-0.3 mg/dL Aspartate Amino Transf (AST/SGOT) 13 10-37 U/L Alanine Aminotransferase (ALT/SGPT) 12 12-78 U/L Alkaline Phosphatase 92 50-136 U/L Total Creatine Kinase 43 21-232 U/L B-Type Natriuretic Peptide 70 0-100 pg/mL Total Protein 6.1 6.0-8.3 g/dL Albumin 3.0 L 3.5-5.0 g/dL Procalcitonin < 0.05 L 0.05-0.5 ng/mL Influenza Type A Antigen Negative For Type A NEGATIVE Influenza Type B Antigen Negative For Type B NEGATIVE Urine Color LIGHT-YELLOW YELLOW Urine Appearance CLEAR CLEAR Urine pH 5.5 5.0-8.0 Urine Specific [place] 1.018 1.001-1.031 Urine Protein NEGATIVE NEGATIVE mg/dL Urine Glucose (UA) NEGATIVE NEGATIVE mg/dL Urine Ketones NEGATIVE NEGATIVE mg/dL Urine Occult Blood NEGATIVE NEGATIVE Urine Nitrate NEGATIVE NEGATIVE Urine Bilirubin NEGATIVE NEGATIVE mg/dL Urine Urobilinogen 0.2 0.2-1.0 mg/dL Urine Leukocyte Esterase NEGATIVE NEGATIVE Romeo/uL Urine RBC 0-1 0-1 /HPF Urine WBC 2-5 H 0-1 /HPF Urine Squamous Epithelial Cells MOD 0-2 /HPF Urine Bacteria None None Seen /HPF Urine HCG, Qualitative NEGATIVE NEGATIVE Test 09/23/24 11:21 Range/Units Troponin I High Sensitivity < 4 L 4-50 ng/L Amylase Level 35 25-115 U/L Current Medications Medications (Trade) Dose Ordered Sig/Crescencio Route PRN Reason Start Time Stop Time Status Last Admin Dose Admin Acetaminophen (TYLenol 325MG TAB) 650 mg Q4H PRN PO MILD PAIN (1-3) 09/23/24 11:30 09/23/24 11:34 DC Acetaminophen (TYLenol 325MG TAB) 650 mg Q6H PRN PO MILD PAIN (1-3) 09/23/24 11:30 10/23/24 11:29 Acetaminophen (TYLenol 325MG TAB) 650 mg Q6H PRN PO TEMPERATURE GREATER THAN 101.5 09/23/24 11:30 10/23/24 11:29 Al Hydroxide/Mg Hydroxide (MAALox PLUS 30ML) 30 ml Q6H PRN PO INDIGESTION 09/23/24 11:30 10/23/24 11:29 Diphenhydramine HCl (BENAdryl INJ) 25 mg Q6H PRN IV SEVERE ITCHING/RASH 09/23/24 11:30 10/23/24 11:29 Famotidine (Pepcid 20mg Vial) 20 mg BID IV 09/23/24 21:00 10/23/24 20:59 09/23/24 20:02 20 MG Famotidine (Pepcid 20mg Vial) 20 mg BID PRN IV NAUSEA/VOMITING 09/23/24 11:30 09/23/24 11:34 DC Guaifenesin/ Dextromethorphan (RobiTUSSin DM 200/20MG 10ML) 10 ml Q4H PRN PO COUGH 09/23/24 11:30 10/23/24 11:29 Heparin Sodium (Porcine) (HEParin 5,000 UNIT VIAL) 5,000 unit BID SQ 09/23/24 21:00 10/23/24 20:59 Hydralazine HCl (APRESOLine 20MG INJ) 10 mg Q6H PRN IV For:SBP above 160;DBP above 90 09/23/24 11:30 10/23/24 11:29 Ketorolac Tromethamine (toRADol) 15 mg Q8H PRN IV MODERATE PAIN (4-6) 09/23/24 11:30 09/28/24 11:29 09/24/24 10:14 15 MG Lactulose (Constulose 20gm/ 30ml Udcup) 20 gm BID PRN PO CONSTIPATION 09/23/24 11:30 10/23/24 11:29 Losartan Potassium (CozAAR 25MG TAB) 25 mg DAILY PO 09/25/24 09:00 10/25/24 08:59 Magnesium Sulfate 50 ml @ 0 mls/hr PROTOCOL PRN IV other 09/23/24 11:30 10/23/24 11:29 Morphine Sulfate (morPHINE 2MG SYG) 1 mg Q4H PRN IVP SEVERE PAIN (7-10) 09/23/24 11:30 09/30/24 11:29 09/24/24 06:34 1 MG Nitroglycerin (Nitrostat) 0.4 mg PROTOCOL PRN SL CHEST PAIN 09/23/24 11:30 10/23/24 11:29 Ondansetron HCl (zoFRAN 4MG INJ) 4 mg Q6H PRN IV NAUSEA/VOMITING 09/23/24 11:30 10/23/24 11:29 Piperacillin Sod/ Tazobactam Sod 50 ml @ 12.5 mls/hr Q8H IV 09/23/24 20:00 10/03/24 19:59 09/24/24 04:54 12.5 MLS/HR Potassium Chloride 100 ml @ 100 mls/hr AD PRN IV POTASSIUM PROTOCOL 09/23/24 11:30 10/23/24 11:29 Potassium Chloride 100 ml @ 100 mls/hr AD PRN IV POTASSIUM PROTOCOL 09/23/24 11:30 10/23/24 11:29 Potassium Chloride (K-Dur 10meq Sr Tab) 10 meq AD PRN PO POTASSIUM PROTOCOL 09/23/24 11:30 10/23/24 11:29 Potassium Chloride (K-Dur/Klor-Con 20meq) 20 meq AD PRN PO POTASSIUM PROTOCOL 09/23/24 11:30 10/23/24 11:29 Potassium Chloride (KCl 10% Elixir 20meq/15ml) 10 meq AD PRN PO POTASSIUM PROTOCOL 09/23/24 11:30 10/23/24 11:29 Potassium Chloride (KCl 10% Elixir 20meq/15ml) 20 meq AD PRN PO POTASSIUM PROTOCOL 09/23/24 11:30 10/23/24 11:29 Sodium Chloride 1,000 ml @ 100 mls/hr Q10H IV 09/23/24 11:30 10/23/24 11:29 09/24/24 07:10 100 MLS/HR Zolpidem Tartrate (AmbIEN) 5 mg HS PRN PO INSOMNIA 09/23/24 11:30 10/23/24 11:29 DIAGNOSTICS / RADIOLOGY: [ ] ASSESSMENT: [ Acute appendicitis s/p lap appendectomy 09/23/2024 Uncontrolled hypertension POA Fibromyalgia POA Admit to: Medical-surgical floor Consults: Surgeon Antibiotics: Zosyn Tests: CT abdomen/pelvis NEURO: Minimize central acting medications as possible. Fall Precautions. Well lighted room through the day and minimize interruptions through the night to prevent acute delirium. PULMONARY: Chest x-ray negative Supplemental 02 as needed BiPAP as necessary, for respiratory distress Titrate Fio2 to keep Spo2 > or = 90% DuoNeb�s and CPT as needed IS hourly while awake for pulmonary hygiene Out of bed to chair as tolerated VAP Bundle Maintain aspiration precautions at all times CARDIOVASCULAR: Follow hemodynamics. Vital signs per facility protocol GI & NUTRITION: Continue nutritional support Aspirations precautions Prokinetic agents and laxatives as needed KIDNEYS & ELECTROLYTES: Strict monitoring of intake and output Daily weights Avoid nephrotoxic agents Monitor electrolytes and replace as needed Goal urine output of 30mL/hr or 0.5mL/kg/hr Medications to be dosed according to renal function. Avoid contrast if possible ENDOCRINE: Maintain blood glucose between 100-180 at all times. Insulin sliding scale for blood glucose management Hypoglycemia and hyperglycemia protocol in place INFECTIOUS DISEASE: Trend temperature, WBC and procalcitonin level Follow cultures, deescalate antibiotics as soon as possible. Panculture if new onset fever HEMATOLOGY & COAGULATION: Monitor H&H. Keep Hgb > 7 Transfuse 1 unit of PRBC for Hgb < 7 Transfuse 1 pack of platelets of platelets < 20, 000 Watch for any signs and symptoms of bleeding SKIN: Pressure ulcer prevention per facility protocol Specialty mattress as needed Treatment plan discussed with patient and family at the bedside Medications to be reconciled once obtained by patient and/or family and available to be reconciled in computer p.r.n. medication for pain nausea and vomiting Questions were answered We will continue to monitor the patient closely Crystal Calibrator for disposition Code Status: Full Resuscitation Disposition: Home ATTESTATION BY PHYSICIAN I have seen and examined the patient. I reviewed the documentation, medical decision making, and treatment plan as noted by the mid-level provider above. I agree with the findings and plan of care. DILEEP VILLALOBOS MD, KATARZYNA B [employer] September 24, 2024 11:35
[2024-09-24 11:52] VITALS: BP 138/85; PULSE 72; RESP 18; TEMP 97.9
--- NOTE | 2024-09-24 13:00 | NUR ---
Discharge instructions given and explained to the patient. PIV is removed. All belongings are packed by the patient's family. she is then wheeled downstairs in a wheelchair and she departed the hospital in a private vehicle.
[2024-09-25] MEDS ORDERED: LoSARTan 25 MG TABLET PO SCH (09:00)
== END 2024-09-24 12:55 | disposition home or self-care (01) | DRG 399 ==
LOC: EDH 11:00 → EDHIP 11:21 → 3DH 18:20
PROVIDERS: ADMIT Internal Medicine; ATTEND Internal Medicine
PROC: 0DTJ4ZZ Resection of Appendix, Percutaneous Endoscopic Approach (ICD-10-PCS; principal; 2024-09-23 16:55)
DX: K35.80 Unspecified acute appendicitis (principal); I10 Essential (primary) hypertension; M79.7 Fibromyalgia
CPT/HCPCS: 36415; 71045; 74176; 80048; 80053; 80076; 81001; 81025; 82150; 82550; 83036; 83605; 83735; 83880; 84145; 84484; 85025; 85610; 87086; 87804; 88304; 96374; 96375; 99285; G0378; J1171; J1644; J1885; J2250; J2270; J2405; J2543; J2704; J2710; J2765; J3010; J3490; J7030; A4649; A4930; C1769; J0665

== ENCOUNTER 2025-05-13 15:06 | Emergency (ER) | payer BC ==
[~2025-05-13] VITALS: Ht 149.9 cm; Wt 65.8 kg
[~2025-05-13 15:06] MED LIST: ESTR1TAB17 PO; LOSA25TA41 PO
--- NOTE | 2025-05-13 15:26 | ERN ---
ED Note History of Present Illness Stated Complaint: OTHER Chief Complaint: Vaginal Problems/Bleeding Time Seen by MD: 15:10 Time Seen by Midlevel: 15:10 Dictation: The patient is a 49-year-old female with a history of endometriosis, hysterectomy, cervical cancer who presents to the emergency department with complaints of vaginal bleeding onset this morning. Patient reports that yesterday she was cleaning her garage and lifting some heavy stuff. Reports that she has used him pads today. Reports three in the last hour. Reports bright red blood with clots. Allergies: Coded Allergies: No Known Allergies (Unverified Allergy, Unknown, 09/23/24) Home Meds Reported Medications Estradiol (Estradiol) 1 Mg Tablet, 1 TAB PO DAILY for 30 Days, #30 TAB 0 Refills 09/23/24 Losartan Potassium (Losartan Potassium) 25 Mg Tablet, 1 TAB PO DAILY for 30 Days, #30 TAB 0 Refills 09/23/24 Past Medical History Past Medical History: Hypertension Additional Past Medical Hx: LUPUS, ENDOMETRIOSIS, CERVICAL CA Surgical History: None RN Note Reviewed/Agreed w/PFSH: Yes Review of System Dictation Constitutional: Negative for fever,chills, and weight loss Eyes: Negative for injury, pain,redness, and discharge ENT: Negative for injury,pain or swelling Cardiovascular: Negative for chest pain, palpitations, and edema Respiratory: Negative for shortness of breath, cough, and wheezing, Abdomen/GI: Negative for abdominal pain, nausea, vomiting, diarrhea, and constipation Back: Negative for injury and pain : Positive for vaginal bleeding MS/Extremity: Negative for injury and deformity Skin: Negative for rash, and discoloration Neuro: Negative for headache, weakness, numbness, tingling, and seizure Psych: Negative for suicide ideation, homicidal ideation, and hallucinations Initial Vital Sign VS Vital Signs Date Time Temp Pulse Resp B/P (MAP) Pulse Ox O2 Delivery O2 Flow Rate FiO2 05/13/25 15:07 98.1 120 20 127/98 98 Room Air 05/13/25 16:10 0 21 Physical Exam Dictation Vital Signs reviewed General Appearance: Alert, oriented x 3, no acute distress, well developed, nourished. Head and Face: non-traumatic. Eyes: PERRL, pink conjunctivas, eyelid no trauma, anterior chamber with arcus senilis. Ears: Pinnas intact and no signs of trauma or erythema ear canals clear and no discharge TM no erythema Nose: No discharge, no bleeding. Oropharynx: Mouth normal, tongue pink. pharynx clear,no erythema, tonsils no exudates, no abscesses noted, mucous membrane moist Neck: Supple, non-tender, no thyromegaly, no masses, no JVD, no bruits Breast:Deferred Chest:No tenderness, no crepitus, no paradoxical movement, no retractions Lungs:Clear, well-ventilated, symmetric, no rales, no wheezing, no rhonchi, no stridor, good breath sounds bilaterally Heart: Regular rate, regular rhythm, no murmur, no gallops Vascular: no peripheral edema, Abdomen: Soft, positive bowel sounds, nondistended, no guarding, nontender, no rebound, no masses no hepatomegaly, no splenomegaly, no Sahu's sign, no hernias. Rectal: Deferred Genital: Moderate bright red bleeding and clots. There is a cervical mass about 3cm x 2 cm with a active bleeding. Neurological: Normal speech, motor function intact, sensory function intact Musculoskeletal: Neck nontender, full range of motion, back nontender, full range of motion, Extremities: nontender, full range of motion Skin: Color pink, dry, no turgor, no rash, no lacerations, no abrasions, no contusions. Lymphatic: Deferred Results (Laboratory/Radiology) Laboratory/Radiology Laboratory Tests Test 05/13/25 15:23 05/13/25 15:56 05/13/25 18:14 Urine Color RED (YELLOW) H Urine Appearance BLOODY (CLEAR) H Urine pH 6.0 (5.0-8.0) Urine Specific Drury 1.039 (1.001-1.031) Urine Protein 50 mg/dL (NEGATIVE) H Urine Glucose (UA) 30 mg/dL (NEGATIVE) H Urine Ketones 5 mg/dL (NEGATIVE) H Urine Occult Blood LARGE (NEGATIVE) H Urine Nitrate NEGATIVE (NEGATIVE) Urine Bilirubin NEGATIVE mg/dL (NEGATIVE) Urine Urobilinogen 2.0 mg/dL (0.2-1.0) H Urine Leukocyte Esterase NEGATIVE Romeo/uL Urine RBC TNTC /HPF (0-1) H Urine WBC 0-1 /HPF (0-1) Urine Squamous Epithelial Cells None Seen /HPF (0-2) Urine Amorphous Crystals (Auto) Many /LPF (None Seen) H Urine Bacteria Few /HPF (None Seen) Urine HCG, Qualitative NEGATIVE (NEGATIVE) White Blood Count 6.8 K/uL (4.8-10.8) Red Blood Count 3.36 MIL/uL (4.00-5.50) L Hemoglobin 9.6 g/dL (12.0-16.0) L 8.8 g/dL (12.0-16.0) L Hematocrit 29.8 % (36-48) L 27.3 % (36-48) L Mean Corpuscular Volume 88.7 fL (79-99) Mean Corpuscular Hemoglobin 28.6 pg (27.0-33.0) Mean Corpuscular Hemoglobin Concent 32.2 g/dL (32.0-36.0) Red Cell Distribution Width 12.7 % (11.0-15.5) Platelet Count 236 K/uL (130-400) Mean Platelet Volume 10.7 fL (7.5-10.5) H Immature Granulocyte % (Auto) 0.3 % (0-1) Neutrophils (%) (Auto) 59.1 % (40.0-77.0) Lymphocytes (%) (Auto) 29.8 % (21.0-51.0) Monocytes (%) (Auto) 9.0 % (3.0-13.0) Eosinophils (%) (Auto) 1.2 % (0.0-8.0) Basophils (%) (Auto) 0.6 % (0.0-5.0) Neutrophils # (Auto) 4.0 K/uL (1.8-7.7) Lymphocytes # (Auto) 2.0 K/uL (1.0-4.8) Monocytes # (Auto) 0.6 K/uL (0.1-1.0) Eosinophils # (Auto) 0.08 K/uL (0.00-0.70) Basophils # (Auto) 0.04 K/uL (0.00-0.20) Absolute Immature Granulocyte (auto 0.02 K/uL (0-1) Nucleated Red Blood Cells 0.0 % (0.0-0.19) Prothrombin Time 10.7 SEC (9.6-11.6) Prothromb Time International Ratio 1.01 (0.85-1.15) Activated Partial Thromboplast Time 28.9 SEC (26.3-35.5) Sodium Level 139 mmol/L (136-145) Potassium Level 2.9 mmol/L (3.5-5.1) *L Chloride Level 107 mmol/L (101-111) Carbon Dioxide Level 29 mmol/L (21-32) Blood Urea Nitrogen 15 mg/dL (7-18) Creatinine 0.8 mg/dL (0.5-1.0) Glomerular Filtration Rate Calc 91 mL/min (>90) Random Glucose 115 mg/dL (70-105) H Total Calcium 8.0 mg/dL (8.5-10.1) L Magnesium Level 2.00 mg/dL (1.80-2.40) REASON: lower abd pain, vaginal bleeding ORDERING PHYSICIAN: ALEXANDRIA WOODS PROCEDURE: ABD PEL WO - CT ABDOMEN/PELVIS W/O CONTRAST EXAM: CT Abdomen and Pelvis Without IV contrast CLINICAL HISTORY: Patient presents with lower abdominal pain and vaginal bleeding, with a history of hysterectomy and appendicectomy. TECHNIQUE: Axial computed tomography images of the abdomen and pelvis without intravenous contrast. CONTRAST: No IV contrast. COMPARISON: Ultrasound pelvis dated May 13, 2025. CT abdomen and pelvis without contrast dated September 23, 2024. FINDINGS: LUNG BASES: 0.3 cm nodule in the middle lobe of the right lung (series 2, image 1). Bibasilar atelectasis. LIVER: The liver measures 13.8 cm and appears normal in size. GALLBLADDER AND BILE DUCTS: A few small hyperdense foci in the neck of the gallbladder, likely representing a calculus. The gallbladder otherwise appears within normal limits. No biliary ductal dilatation is evident. PANCREAS: Unremarkable. SPLEEN: Unremarkable. ADRENAL GLANDS: Unremarkable. KIDNEYS, URETERS, AND BLADDER: The kidneys appear within normal limits. There is no hydronephrosis or hydroureter. No urinary calculi are seen. STOMACH AND BOWEL: Small hiatus hernia. Unremarkable appearance of the stomach and bowel otherwise. No evidence of bowel obstruction. No evidence suggesting enteritis or colitis. APPENDIX: Post-appendectomy status. PERITONEUM: No free fluid. No free air. LYMPH NODES: No lymphadenopathy is evident. REPRODUCTIVE: Post-hysterectomy status. No obvious mass lesions in the pelvis. Mild questionable thickening of vaginal siddiqi. VASCULATURE: No evidence of abdominal aortic aneurysm. BONES: No aggressive appearing osseous lesion. No acute osseous pathology is evident. IMPRESSION: 1. No acute intra-abdominal or pelvic pathology. 2. Mild questionable thickening of vaginal siddiqi, concerning for inflammatory etiology /non-specific. Recommend clinical correlation and MRI pelvis if clinically warranted. 3. Small hyperdense foci in the gallbladder, suggestive of sludge /small calculi. New finding since the prior study. 4. 0.3 cm right middle lobe pulmonary nodule. Not demonstrated in the prior study, probably not included in the field of examination. Recommend annual follow-up. /[facility] REASON: vaginal bleeding ORDERING PHYSICIAN: ALEXANDRIA WOODS PROCEDURE: PELVCOMP - US PELVIC NON-OB COMP STUDY US Pelvis, transabdominal non-obstetric HISTORY Vaginal bleeding; prior hysterectomy for carcinoma cervix TECHNIQUE Transabdominal pelvic ultrasound with grayscale and limited color Doppler evaluation. COMPARISON None provided. FINDINGS UTERUS AND CERVIX The uterus and cervix are surgically absent, consistent with prior hysterectomy. No discrete soft tissue mass is identified at the vaginal cuff in the visualized pelvis. ADNEXA Right ovary is visualized with preserved Doppler flow and no focal cystic or solid adnexal mass. Left ovary is visualized with preserved Doppler flow and no focal cystic or solid adnexal mass. No separate adnexal mass is identified. BLADDER AND PELVIC SPACES Urinary bladder is unremarkable on the limited survey. No free fluid is seen in the pelvis. IMPRESSION * Status post hysterectomy with no sonographic evidence of recurrent or residual pelvic mass in the imaged field. * Unremarkable appearance of the ovaries and no adnexal mass or free fluid identified. /[facility] Labs Reviewed?: Yes ED Course ED Course Orders Procedure Category Date Status Time Cbc With Differential LAB 05/13/25 Complete 15:16 ,Urine Test LAB 05/13/25 Complete 15:16 Urinalysis Profile LAB 05/13/25 Complete 15:16 Basic Metabolic Panel LAB 05/13/25 Complete 15:16 Us Pelvic Non-Ob Comp US 05/13/25 Resulted 15:16 Type And Screen BBK 05/13/25 Complete 15:16 0.9%Nacl 1000ml (Ns PHA 05/13/25 Complete 1000ml) 15:30 Potassium Bicarb/Cit PHA 05/13/25 Complete Ac 25meq (K-Lyte Ta 17:00 Magnesium LAB 05/13/25 Complete 16:34 Pelvic Exam Set Up CPOE 05/13/25 Transmitted (Er) 16:34 Pt And Ptt LAB 05/13/25 Complete 17:08 Ct Abdomen/Pelvis W/O CT 05/13/25 Resulted Contrast 17:23 Hemoglobin And LAB 05/13/25 Complete Hematocrit 17:28 Morphine 4mg Syg PHA 05/13/25 Complete (Morphine 4mg Syg) 19:30 Ondansetron 4mg Inj PHA 05/13/25 Complete (Zofran 4mg Inj) 19:30 Morphine 2mg Syg PHA 05/13/25 Complete (Morphine 2mg Syg) 20:00 Hydromorphone 0.5mg PHA 05/13/25 Complete Syg (Dilaudid 0.5mg 20:00 Current Medications Medications (Trade) Dose Ordered Sig/Crescencio Route PRN Reason Start Time Stop Time Status Last Admin Dose Admin Hydromorphone HCl (DiLAUDid 0.5MG INJ) 0.5 mg ONCE ONCE IVP 05/13/25 20:00 05/13/25 20:01 DC 05/13/25 19:40 Morphine Sulfate (morPHINE 2MG SYG) 4 mg ONCE ONCE IVP 05/13/25 20:00 05/13/25 19:35 DC Morphine Sulfate (morPHINE 4MG SYG) 4 mg ONCE ONCE IVP 05/13/25 19:30 05/13/25 19:33 DC Ondansetron HCl (zoFRAN 4MG INJ) 4 mg ONCE ONCE IVP 05/13/25 19:30 05/13/25 19:31 DC 05/13/25 19:40 Potassium Bicarbonate (K-Lyte Tablet Eff 25 Meq Tablet.eff) 50 meq ONCE ONCE PO 05/13/25 17:00 05/13/25 17:01 DC 05/13/25 18:36 Sodium Chloride 1,000 ml @ 0 mls/hr ONCE ONCE IV 05/13/25 15:30 05/13/25 15:31 DC 05/13/25 16:04 Vital Signs Date Time Temp Pulse Resp B/P (MAP) Pulse Ox O2 Delivery O2 Flow Rate FiO2 05/13/25 18:00 98.4 81 18 116/82 98 Room Air* 0 21 05/13/25 16:10 98.4 91 18 114/81 100 Room Air* 0 21 05/13/25 15:07 98.1 120 20 127/98 98 Room Air Medical Decision Making MDM MDM: The patient is a 49-year-old female with a history of endometriosis, hysterectomy, cervical cancer who presents to the emergency department with complaints of vaginal bleeding onset this morning. Patient reports that yesterday she was cleaning her garage and lifting some heavy stuff. Reports that she has used him pads today. Reports three in the last hour. Reports bright red blood with clots. CBC showed no leukocytosis, normocytic anemia, chemistry showed hypokalemia, urinalysis negative for nitrites or leukocyte esterase. CT abdomen pelvis showed mild vaginal siddiqi. Ultrasound was unremarkable. On physical exam patient had a cervical mass about 3 cm x 2 cm with a active moderate bleeding. pelvic exam perform by and myself For this reason we will transfer patient for OBGYN consultation. Spoke to Dr. Felder who requests patient will be sent to the ER. Differential diagnosis: Vaginal bleeding, anemia, dehydration, vaginal lesions Comorbidities: Medical cancer, hysterectomy Tests considered and not ordered secondary to shared decision making include: none Previous outside records reviewed: none Risk of complication and/or morbidity or mortality of patient management: The patient meets criteria for transfer Need for emergency major/minor surgery: No There are no social concerns with this patient. I independently interpreted the tests I ordered (labs, urinalysis, etc.). I discussed the case with the hospitalist for transfer Dr. Lucia ER physician who accepts transfer I discussed the case with the following specialists: Dr. Felder OBGYN request transfer to ER Historian: pateint. I independently interpreted imaging studies and EKGs that I ordered (US, CT, XR, EKG, etc.). External chart review: none. Medical management and examination interpretation discussions were had by me with other qualified healthcare professionals as indicated for the patient's care. DX & DISP Disposition: Transfer Departure Impression: Primary Impression: Vaginal bleeding Additional Impressions: Anemia, Cervical mass, History of cervical cancer Condition: Stable Referrals: JC SHERIDAN MD (PCP) I have examined patient, & reviewed all documents, & agreed W/ the Diagnosis, and Plan ALEXANDRIA WOODS AUTOMATED CUTTING MACHINE OPERATOR May 13, 2025 15:26
[2025-05-13 15:45] LABS: HCG,QUALITATIVE URINE NEGATIVE (NEGATIVE)
[2025-05-13 15:51] LABS: APPEARANCE,URINE BLOODY (CLEAR); GLUCOSE, URINE (UA) 30 mg/dL (NEGATIVE); LEUKOCYTE ESTERASE ,URINE NEGATIVE Leu/uL (NEGATIVE); NITRATE,URINE NEGATIVE (NEGATIVE); OCCULT BLOOD,URINE LARGE (NEGATIVE)
[2025-05-13 15:53] LABS: ADD UA MICROSCOPIC YES
[2025-05-13 15:54] LABS: SQUAMOUS EPITHELIAL CELL,UR None Seen /HPF (0-2)
[2025-05-13 16:01] LABS: IMMATURE GRANULOCYTE ABSOLUTE 0.02 K/uL (0-1); NUCLEATED RED BLOOD CELLS 0.0 % (0.0-0.19); PLATELET COUNT (AUTO) 236 K/uL (130-400); RED BLOOD CELL COUNT(AUTO) 3.36 MIL/uL (4.00-5.50); RED CELL DISTRIBUTION WIDTH 12.7 % (11.0-15.5); WHITE BLOOD COUNT (AUTO) 6.8 K/uL (4.8-10.8)
[2025-05-13] MEDS: 0.9%NACL 1000ML 1,000 ML IV ONE (16:04)
[2025-05-13 16:08] LABS: CREATININE 0.8 mg/dL (0.5-1.0); GLOMERULAR FILTR. RATE CALC 91.0 mL/min (>90); GLUCOSE,RANDOM 115.0 mg/dL (70-105); SODIUM SERUM 139.0 mmol/L (136-145); UREA NITROGEN, BLOOD 15.0 mg/dL (7-18)
[2025-05-13 17:34] LABS: INR 1.01 (0.85-1.15)
--- NOTE | 2025-05-13 17:41 | HMCIMG ---
STUDY US Pelvis, transabdominal non-obstetric HISTORY Vaginal bleeding; prior hysterectomy for carcinoma cervix TECHNIQUE Transabdominal pelvic ultrasound with grayscale and limited color Doppler evaluation. COMPARISON None provided. FINDINGS UTERUS AND CERVIX The uterus and cervix are surgically absent, consistent with prior hysterectomy. No discrete soft tissue mass is identified at the vaginal cuff in the visualized pelvis. ADNEXA Right ovary is visualized with preserved Doppler flow and no focal cystic or solid adnexal mass. Left ovary is visualized with preserved Doppler flow and no focal cystic or solid adnexal mass. No separate adnexal mass is identified. BLADDER AND PELVIC SPACES Urinary bladder is unremarkable on the limited survey. No free fluid is seen in the pelvis. IMPRESSION * Status post hysterectomy with no sonographic evidence of recurrent or residual pelvic mass in the imaged field. * Unremarkable appearance of the ovaries and no adnexal mass or free fluid identified. /[place]
--- NOTE | 2025-05-13 19:38 | HMCIMG ---
EXAM: CT Abdomen and Pelvis Without IV contrast CLINICAL HISTORY: Patient presents with lower abdominal pain and vaginal bleeding, with a history of hysterectomy and appendicectomy. TECHNIQUE: Axial computed tomography images of the abdomen and pelvis without intravenous contrast. CONTRAST: No IV contrast. COMPARISON: Ultrasound pelvis dated May 13, 2025. CT abdomen and pelvis without contrast dated September 23, 2024. FINDINGS: LUNG BASES: 0.3 cm nodule in the middle lobe of the right lung (series 2, image 1). Bibasilar atelectasis. LIVER: The liver measures 13.8 cm and appears normal in size. GALLBLADDER AND BILE DUCTS: A few small hyperdense foci in the neck of the gallbladder, likely representing a calculus. The gallbladder otherwise appears within normal limits. No biliary ductal dilatation is evident. PANCREAS: Unremarkable. SPLEEN: Unremarkable. ADRENAL GLANDS: Unremarkable. KIDNEYS, URETERS, AND BLADDER: The kidneys appear within normal limits. There is no hydronephrosis or hydroureter. No urinary calculi are seen. STOMACH AND BOWEL: Small hiatus hernia. Unremarkable appearance of the stomach and bowel otherwise. No evidence of bowel obstruction. No evidence suggesting enteritis or colitis. APPENDIX: Post-appendectomy status. PERITONEUM: No free fluid. No free air. LYMPH NODES: No lymphadenopathy is evident. REPRODUCTIVE: Post-hysterectomy status. No obvious mass lesions in the pelvis. Mild questionable thickening of vaginal siddiqi. VASCULATURE: No evidence of abdominal aortic aneurysm. BONES: No aggressive appearing osseous lesion. No acute osseous pathology is evident. IMPRESSION: 1. No acute intra-abdominal or pelvic pathology. 2. Mild questionable thickening of vaginal siddiqi, concerning for inflammatory etiology /non-specific. Recommend clinical correlation and MRI pelvis if clinically warranted. 3. Small hyperdense foci in the gallbladder, suggestive of sludge /small calculi. New finding since the prior study. 4. 0.3 cm right middle lobe pulmonary nodule. Not demonstrated in the prior study, probably not included in the field of examination. Recommend annual follow-up. /[place]
[2025-05-13 22:00] VITALS: BP 115/70; PULSE 65; RESP 18; TEMP 98.5; O2SAT 99
== END 2025-05-13 22:42 | disposition short-term general hospital (02) ==
LOC: EDH 15:06
DX: N93.9 Abnormal uterine and vaginal bleeding, unspecified (principal); D64.9 Anemia, unspecified; N88.9 Noninflammatory disorder of cervix uteri, unspecified; I10 Essential (primary) hypertension; Z79.899 Other long term (current) drug therapy; Z79.818 Long term (current) use of other agents affecting estrogen receptors and estrogen levels; Z85.41 Personal history of malignant neoplasm of cervix uteri; Z90.710 Acquired absence of both cervix and uterus
CPT/HCPCS: 99285; 74176; 96374; 96361; 76856; 96375; 83735; 80048; 85025; 85610; 85730; 86850; 86900; 86901; 81001; 81025; 36415; 85014; 85018; J7030; J2405; J1171